=== PATIENT | female | born 1970 ===

== ENCOUNTER 2019-12-07 17:30 | Emergency (ER) | payer SELFPAY ==
--- NOTE | 2019-12-07 17:39 | ER Document Report ---
ED Medical Screen (RME) - General Stated Complaint: POSSIBLE STROKE Time Seen by Provider: 12/07/19 17:33 - HPI Notes: 12/07/19 17:35 I was asked to come out to the main lobby to see this patient for possible strokelike symptoms that her friend noticed today. Patient is a 49-year-old female with a history of TIAs approximately 2 to 3 years ago. patient recently moved from [place] and is staying with her friend, yesterday her friend stated that she laid in bed all day yesterday because she was really tired today when she was talking with her she noticed that she was having slurred speech she cannot walk. Denies any trauma or fall. Patient is not on any anticoagulant therapy. Denies any focal neurological deficit from previous TIAs. I have greeted and performed a rapid initial assessment of this patient. A comprehensive ED assessment and evaluation of the patient, analysis of test results and completion of the medical decision making process will be conducted by additional ED providers. PHYSICAL EXAMINATION: GENERAL: Well-appearing, well-nourished and lethargic HEAD: Atraumatic, normocephalic. EYES: Pupils equal round extraocular movements intact, conjunctiva are normal. CV: s1, s2 regular LUNGS: No respiratory distress Musculoskeletal: Normal range of motion NEUROLOGICAL: Patient in wheelchair. 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 Face symmetrical tongue midline. No dysmetria. Speech was fragmented, no slurring of speech SKIN: Warm, Dry, normal turgor, no rashes or lesions noted. charge nurse to make aware of possible stroke at 1730. Dr. Alvarez, ER supervising physician to assess patient in CT 12/07/19 17:39
--- NOTE | 2019-12-07 18:03 | RADIOLOGY REPORT (SQ) ---
EXAM DESCRIPTION: CHEST SINGLE VIEW IMAGES COMPLETED DATE/TIME: 12/07/2019 5:44 pm REASON FOR STUDY: stroke like symptoms COMPARISON: None. EXAM PARAMETERS: NUMBER OF VIEWS: One view. TECHNIQUE: Single frontal radiographic view of the chest acquired. RADIATION DOSE: NA LIMITATIONS: None. FINDINGS: LUNGS AND PLEURA: No opacities, masses or pneumothorax. No pleural effusion. MEDIASTINUM AND HILAR STRUCTURES: No masses. Contour normal. HEART AND VASCULAR STRUCTURES: Heart normal in size. Normal vasculature. BONES: No acute findings. HARDWARE: None in the chest. OTHER: No other significant finding. IMPRESSION: 1. NO ACUTE RADIOGRAPHIC FINDING IN THE CHEST. TECHNICAL DOCUMENTATION: JOB ID: [id number] 2010 [employer]- All Rights Reserved Reading location - IP/workstation name: [email or web address]
--- NOTE | 2019-12-07 18:06 | EKG REPORT ---
SEVERITY:- NORMAL ECG - SINUS RHYTHM : Confirmed by: Kapil Eliazbeth MD 07-Dec-2019 18:04:41
--- NOTE | 2019-12-07 18:07 | ER Document Report ---
ED Headache - General Stated Complaint: POSSIBLE STROKE Time Seen by Provider: 12/07/19 17:33 Primary Care Provider: JULIO,NO [Primary Care Provider] - Follow up as needed Mode of Arrival: Wheelchair Information source: Patient, Relative Notes: GRICEL NOTES AT TRIAGE Patient Name: CHARISMA IRELAND Date of : 74 Patient Status: Emergency Emergency Provider: PETTY ALVAREZ JR Date: 12/07/19 17:34 Initialization Date: 12/07/19 17:34RME) - General Stated Complaint: POSSIBLE STROKE Time Seen by Provider: 12/07/19 17:33 - HPI Notes: 12/07/19 17:35 I was asked to come out to the main lobby to see this patient for possible strokelike symptoms that her friend noticed today. Patient is a 49-year-old female with a history of TIAs approximately 2 to 3 years ago. patient recently moved from [place] and is staying with her friend, yesterday her friend stated that she laid in bed all day yesterday because she was really tired today when she was talking with her she noticed that she was having slurred speech she cannot walk. Denies any trauma or fall. Patient is not on any anticoagulant therapy. Denies any focal neurological deficit from previous TIAs. I have greeted and performed a rapid initial assessment of this patient. A comprehensive ED assessment and evaluation of the patient, analysis of test results and completion of the medical decision making process will be conducted by additional ED providers. PHYSICAL EXAMINATION: GENERAL: Well-appearing, well-nourished and lethargic HEAD: Atraumatic, normocephalic. EYES: Pupils equal round extraocular movements intact, conjunctiva are normal. CV: s1, s2 regular LUNGS: No respiratory distress Musculoskeletal: Normal range of motion NEUROLOGICAL: Patient in wheelchair. 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 Face s ymmetrical tongue midline. No dysmetria. Speech was fragmented, no slurring of speech SKIN: Warm, Dry, normal turgor, no rashes or lesions noted. charge nurse to make aware of possible stroke at 1730. Dr. Alvarez, ER supervising physician to assess patient in CT 12/07/19 17:39 MY NOTES TODAY @ 1730 49-year-old female arrives by POV with her cousin Vita who works at [employer]. For the last 2 days patient has been in bed after having 13 days of heavy vaginal bleeding and complaining of diffuse abdominal pain. Patient reports she is scheduled to have ultrasound and ISI while she was in [place] where she is just moved from 1 month ago. She has been staying with her cousin Vita until she finds her own home. She is 7 para 7 with the oldest being 28 and the youngest being 16 years old. Patient reports she been having very much tiredness over the last 2 days and has change in speech according to Vita which is 180 degrees from what the patient usually is acting. Today patient has trouble retrieving her words but is able to interpret what we say and follow commands with some difficulty. Patient denies any prior head damage or stroke or TIA. Patient does smoke 1 pack/day cigarettes and drinks [employer] spritzer's. Patient reports to Magdalena BURK that she just needs an iron infusion and go home. Patient has speaking in slow slurred speech with right facial droop. She reports once a year she gets similar symptoms just like this. I got a call around 1800 from radiologist to advise pts CT of head appears within normal limits TRAVEL OUTSIDE OF THE [place] IN LAST 30 DAYS: No - HPI Patient complains to provider of: Headache Onset: Other - x 2 days Onset was: Abrupt Timing: Still present Severity: Mild Pain Level: 1 - Related Data Allergies/Adverse Reactions: No Known Allergies Allergy (Unverified 12/07/19 20:00) Past Medical History - General Information source: Patient, Relative - Social History Smoking Status: Current Every Day Smoker Cigarette use (# per day): Yes Chew tobacco use (# tins/day): No Smoking Education Provided: Yes Frequency of alcohol use: None Lives with: Family Family History: Reviewed & Not Pertinent Patient has suicidal ideation: No Patient has homicidal ideation: No Review of Systems - Review of Systems -: Yes ROS unobtainable due to patient's medical condition Constitutional: See HPI, Weakness EENT: See HPI, Blurred vision Cardiovascular: No symptoms reported Respiratory: No symptoms reported Gastrointestinal: See HPI, Abdominal pain, Poor appetite Genitourinary: No symptoms reported Female Genitourinary: See HPI, Heavy/abnormal periods Musculoskeletal: No symptoms reported Skin: No symptoms reported Hematologic/Lymphatic: No symptoms reported Neurological/Psychological: See HPI, Weakness, Gait changes -: Yes All other systems reviewed and negative Physical Exam - Vital signs Vitals: Pulse Resp BP Pulse Ox 58 L 15 142/86 H 95 12/07/19 18:00 12/07/19 18:00 12/07/19 18:00 12/07/19 18:00 Interpretation: Normal - General General appearance: Appears well, Alert - HEENT Head: Normocephalic, Atraumatic Eyes: Normal Pupils: PERRL - Respiratory Respiratory status: No respiratory distress Chest status: Nontender Breath sounds: Normal Chest palpation: Normal - Cardiovascular Rhythm: Regular Heart sounds: Normal auscultation Murmur: No - Abdominal Inspection: Normal Distension: No distension Bowel sounds: Normal Tenderness: Nontender Organomegaly: No organomegaly - Rectal Hemorrhoids: Other - deferred - Genitourinary Bimanuel exam: Other - deferred - Back Back: Normal, Nontender - Extremities General upper extremity: Normal inspection, Nontender, Normal color, Normal ROM, Normal temperature General lower extremity: Normal inspection, Nontender, Normal color, Normal ROM, Normal temperature, Normal weight bearing. No: Turner's sign - Neurological Neuro grossly intact: Yes Cognition: Normal Orientation: AAOx4 Inge Coma Scale Eye Opening: Spontaneous Inge Coma Scale Verbal: Oriented [place] Coma Scale Motor: Obeys Commands Inge Coma Scale Total: 15 Speech: Normal Motor strength normal: LUE, RUE, LLE, RLE Sensory: Normal - Psychological Associated symptoms: Normal affect, Normal mood - Skin Skin Temperature: Warm Skin Moisture: Dry Skin Color: Normal Course - Vital Signs Vital signs: Temp Pulse Resp BP Pulse Ox 97.6 F 58 L 15 142/86 H 95 12/07/19 18:05 12/07/19 18:00 12/07/19 18:05 12/07/19 18:05 12/07/19 18:05 - Laboratory Result Diagrams: 12/07/19 17:52 12/07/19 17:52 Laboratory results interpreted by me: 12/07/19 12/07/19 17:52 17:52 Hgb 11.5 L Hct 35.5 L MCV 73 L MCH 23.7 L RDW 18.8 H Eos % (Auto) 8.8 H Chloride 108 H note inc eosinophils - Diagnostic Test Radiology reviewed: Reports reviewed - CT of head within normal limits per radiologist; CXR NAD;MRI neg - EKG Interpretation by Me EKG shows normal: Sinus rhythm Rate: Normal Rhythm: NSR - EKG with 58 bpm and normal sinus rhythm with no ST elevation and no ST depression and no T wave elevation and no T wave depression and this was read by myself and I agree with the EKG machine on reading. Discharge - Discharge Clinical Impression: Mental status alteration Qualifiers: Altered mental status type: unspecified Qualified Code(s): R41.82 - Altered mental status, unspecified Anemia Qualifiers: Anemia type: iron deficiency Iron deficiency anemia type: other iron deficiency Qualified Code(s): D50.8 - Other iron deficiency anemias Condition: Good Disposition: HOME, SELF-CARE Additional Instructions: Follow-up with VASCULAR ULTRASOUND TECHNICIAN doctor like Dr. Lacy; return to ER as needed ;take medicines as directed ;encourage fluids Prescriptions: Ferrous Fumarate/Ascorbic Acid [Sandra-Sequels 65-25 mg Caplet] 1 each PO DAILY #1 bottle Referrals: CLEMENTINE KIM [Primary Care Provider] - Follow up as needed ROSALIO LACY MD [ACTIVE STAFF] - Follow up as needed
--- NOTE | 2019-12-07 18:11 | RADIOLOGY REPORT (SQ) ---
EXAM DESCRIPTION: CT HEAD WITHOUT IMAGES COMPLETED DATE/TIME: 12/07/2019 5:43 pm REASON FOR STUDY: stroke like symptoms COMPARISON: None. TECHNIQUE: Axial images acquired through the brain without intravenous contrast. Images reviewed wi th bone, brain and subdural windows. Additional sagittal and coronal reconstructions were generated. Images stored on PACS. All CT scanners at this facility use dose modulation, iterative reconstruction, and/or weight based d osing when appropriate to reduce radiation dose to as low as reasonably achievable (ALARA). [facility]: Dose Right [facility]: CareDose [facility]: Dose Right [facility]: Teradose 4D [facility]: Smart [employer] RADIATION DOSE: CT Rad equipment meets quality standard of care and radiation dose reduction techniq ues were employed. CTDIvol: 53.2 mGy. DLP: 937 mGy-cm. LIMITATIONS: None. FINDINGS: VENTRICLES: Normal size and contour. The cisterns are patent. CEREBRUM: No masses. No hemorrhage. No midline shift. No evidence for acute infarction. Normal gra y/white matter differentiation. No areas of low density in the white matter. CEREBELLUM: No masses. No hemorrhage. No alteration of density. No evidence for acute infarction. EXTRAAXIAL SPACES: No fluid collections. No masses. ORBITS AND GLOBE: No intra- or extraconal masses. Normal contour of globe without masses. CALVARIUM: No fracture. PARANASAL SINUSES: No fluid or mucosal thickening. SOFT TISSUES: No mass or hematoma. OTHER: No other significant finding. IMPRESSION: 1. NORMAL BRAIN CT WITHOUT CONTRAST. 2. Correlation suggested in view of the given history and further evaluation with MRI Brain without contrast maybe helpful. EVIDENCE OF ACUTE STROKE: NO. COMMENT: 1. The results of this examination were discussed with emergency department provider on and 18:05 hours. Quality ID # [id number]: Final reports with documentation of one or more dose reduction techniques (e.g., Au tomated exposure control, adjustment of the mA and/or kV according to patient size, use of iterative reconstruction technique) TECHNICAL DOCUMENTATION: JOB ID: [id number] 2010 [employer]- All Rights Reserved Reading location - IP/workstation name: [email or web address]
[2019-12-07 18:12] LABS: INTERNATIONAL RATION (INR) 0.95; PROTHROMBIN TIME 12.9 SEC (11.4-15.4)
[2019-12-07 18:15] LABS: ABSOLUTE EOSINOPHILS # (AUTO) 0.5 10^3/uL (0.0-0.6); ABSOLUTE LYMPHOCYTES (AUTO) 1.2 10^3/uL (0.5-4.7); ABSOLUTE MONOCYTES (AUTO) 0.4 10^3/uL (0.1-1.4); ABSOLUTE NEUT (AUTO) 3.2 10^3/uL (1.7-8.2); BASOPHILS % (AUTO) 0.9 % (0-2); EOSINOPHILS % (AUTO) 8.8 % (0-6); HEMATOCRIT 35.5 % (36.0-47.0); HEMOGLOBIN 11.5 g/dL (12.0-15.5); LYMPHOCYTES % (AUTO) 21.7 % (13-45); MEAN CORPUSCULAR HEMOGLOBIN 23.7 pg (27.0-33.4); MEAN CORPUSCULAR HGB CONC 32.4 g/dL (32.0-36.0); MEAN CORPUSCULAR VOLUME 73 fl (80-97); MONOCYTES % (AUTO) 8.2 % (3-13); PLATELET COUNT 393 10^3/uL (150-450); RED BLOOD COUNT 4.86 10^6/uL (3.72-5.28); RED CELL DISTRIBUTION WIDTH 18.8 % (11.5-14.0); SEGMENTED NEUTROPHILS % (AUTO) 60.4 % (42-78); TOTAL CELLS COUNTED % (AUTO) 100 %; WHITE BLOOD COUNT 5.3 10^3/uL (4.0-10.5)
[2019-12-07 18:34] LABS: ALKALINE PHOSPHATASE 97 U/L (38-126); ANION GAP 8 (5-19); ASPARTATE AMINO TRANSFERASE 22 U/L (14-36); BILIRUBIN,DIRECT 0.1 mg/dL (0.0-0.4); BILIRUBIN,TOTAL 0.6 mg/dL (0.2-1.3); BLOOD UREA NITROGEN 12 mg/dL (7-20); CALCIUM 8.9 mg/dL (8.4-10.2); CARBON DIOXIDE 22 mmol/L (22-30); CHLORIDE 108 mmol/L (98-107); GLUCOSE 84 mg/dL (75-110); POTASSIUM 3.9 mmol/L (3.6-5.0); TOTAL PROTEIN 7.4 g/dL (6.3-8.2)
--- NOTE | 2019-12-07 19:51 | RADIOLOGY REPORT (SQ) ---
EXAM DESCRIPTION: MRI HEAD WITHOUT IMAGES COMPLETED DATE/TIME: 12/07/2019 7:21 pm REASON FOR STUDY: cva COMPARISON: CT head without IV contrast dated 12/07/2019. TECHNIQUE: Multiplanar imaging includes non-contrasted T1, T2, FLAIR, and diffusion with ADC map seq uences. Images stored on PACS. LIMITATIONS: None. FINDINGS: ANATOMY: No anomalies. Normal vascular flow voids. Pituitary fossa normal. CSF SPACES: Normal in size and contour. No hemorrhage. CEREBRUM: T2/FLAIR foci of increased signal intensity in the bilateral periventricular and subcortic al white matter may be on the basis of chronic small vessel ischemic changes. Sulci and gyri normal in size and contour. Normal white matter signal on FLAIR imaging. No evidence of hemorrhage, mass, o r extraaxial fluid collection. POSTERIOR FOSSA: No signal alteration. No hemorrhage. No edema, masses or mass effect. Internal cirilo tory canals, cerebello-pontine angles, mastoids normal. DIFFUSION IMAGING: Negative for acute or sub-acute infarction. ORBITS: No masses. Globes normal. PARANASAL SINUSES: No fluid levels. Mucosa normal. OTHER: No other significant finding. IMPRESSION: 1. No acute intracranial abnormality. 2. Chronic mild small vessel ischemic changes. EVIDENCE OF ACUTE STROKE: NO. COMMENT: 1. The results of this examination were discussed with emergency department provider on at 19:44 hours. TECHNICAL DOCUMENTATION: JOB ID: [id number] 2010 [employer]- All Rights Reserved Reading location - IP/workstation name: [email or web address]
[2019-12-07] MEDS ORDERED: FERRIC CARBOXYMALTOSE INJ 750 MG/15 ML VIAL IV ONE (20:14)
[2019-12-07] MEDS ORDERED: FERRIC CARBOXYMALTOSE 750 MG in NORMAL SALINE 250 ML IV ONE (21:15)
[2019-12-07 22:25] VITALS: BP 108/72
== END 2019-12-07 22:24 | disposition home or self-care (01) ==
LOC: ER 17:30
DX: R41.82 Altered mental status, unspecified (principal); D50.8 Other iron deficiency anemias; R51.9 Headache, unspecified; R10.84 Generalized abdominal pain; N93.9 Abnormal uterine and vaginal bleeding, unspecified; H53.8 Other visual disturbances; R53.83 Other fatigue; R29.810 Facial weakness; F17.210 Nicotine dependence, cigarettes, uncomplicated; R53.1 Weakness; R63.0 Anorexia; R26.9 Unspecified abnormalities of gait and mobility; Z86.73 Personal history of transient ischemic attack (TIA), and cerebral infarction without residual deficits
CPT/HCPCS: 93005; 99285; 96374; 36415; 82962; 80307; 84703; 85025; 85610; 80053; 70551; 71045; 70450; 93010; J7050; J1439